=== PATIENT | male | born 1960 | race Caucasian/White ===

== ENCOUNTER 2017-05-23 14:34 | Inpatient (IN) | payer OTHER ==
[2017-05-23] MEDS ORDERED: Diltiazem IV VIAL* 125 MG in D5W 100 ML BAG* 100 ML IV ONE (15:04)
[2017-05-23] MEDS ORDERED: Diltiazem IV* 5 MG/ML 5 ML VIAL (for loading dose/IV Push) (25 MG) IV SLOW PU ONE (15:04)
[2017-05-23 15:13] LABS: Hematocrit 40 % (42-52); Hemoglobin 13.5 g/dl (14.0-18.0); Mean Corpuscular HGB Conc 34 g/dl (31-36); Mean Corpuscular Hemoglobin 30 pg (27-31); Mean Corpuscular Volume 90 fL (80-94); Mean Platelet Volume 8 um3 (7.4-10.4); Red Blood Count 4.46 10^6/ul (4.0-5.4); Red Cell Distribution Width 13 % (10.5-15); White Blood Count 8.7 10^3/ul (3.5-10.8)
[2017-05-23] MEDS ORDERED: Diltiazem IV* 5 MG/ML 5 ML VIAL (for loading dose/IV Push) (25 MG) ONE (15:18)
[2017-05-23 15:29] LABS: ALT 12 U/L (7-52); Albumin 4.3 g/dL (3.2-5.2); Alkaline Phosphatase 41 U/L (34-104); BUN/Creatinine Ratio 15.1 (8-20); Blood Urea Nitrogen 13 mg/dL (6-24); CO2 Carbon Dioxide 27 mmol/L (22-32); Calcium 9.8 mg/dL (8.6-10.3); Chloride 104 mmol/L (101-111); Creatine Kinase 207 U/L (10-223); EGFR African American 117.9 (>60); EGFR Non-African American 91.7 (>60); Globulin 3.2 g/dL (2-4); Glucose 87 mg/dL (70-100); LDL Cholesterol Direct 98 mg/dL; Sodium 137 mmol/L (133-145); Total Protein 7.5 g/dL (6.4-8.9)
--- NOTE | 2017-05-23 15:29 | RAD ---
Indication: Chest pain for one year. Comparison: No relevant prior exams available on the [facility] for comparison. Technique: Upright AP 1513 hours Report: Mild prominence of the interstitial markings with subtle thickened peripheral intralobular septa. Negative for pleural effusions. Negative for pneumothorax. Negative for cardiomegaly. Unremarkable central pulmonary vasculature and mediastinal contours. IMPRESSION: The pattern of prominence of interstitial markings favors mild interstitial edema. Correlate with clinical assessment.
[2017-05-23] MEDS ORDERED: Heparin DRIP 25,000 UNITS(*) 25,000 UNITS/500 ML BAG IVPB SCH (15:30)
[2017-05-23 15:54] LABS: Anion Gap 6 mmol/L (2-11)
[2017-05-23] MEDS ORDERED: Heparin VIAL(*) 5000 UNITS/ML VIAL (FIVE THOUSAND) IV SCH (16:00)
[2017-05-23] MEDS ORDERED: Metoprolol Tartrate TAB* 25 MG PO ONE (16:29)
[2017-05-23] MEDS ORDERED: Enoxaparin(*) 80 MG/0.8 ML SYR SUBCUT ONE (16:30)
[2017-05-23] MEDS ORDERED: Nicotine GUM* 2 MG PO PRN (16:45)
[2017-05-23] MEDS: Metoprolol Tartrate TAB* 25 MG PO SCH ×2 (18:12→22:48)
--- NOTE | 2017-05-23 18:15 | CONS ---
ADDENDUM NOW INCLUDED ON THIS REPORT CC: Hospitalist Service, Dr. Mckeon; Dr. Barreto; Dr. Delarosa * CARDIOLOGY CONSULT REPORT: DATE OF CONSULT: 05/23/17 HISTORY OF PRESENT ILLNESS: I was asked to see this 56-year-old male patient, who presented to the emergency room and was found to be in atrial flutter. Initially there was some concern of ST elevations inferiorly and the patient was also seen by Dr. Ortiz. The patient originally was seen by me in the office on 05/11/17. At that time, he was found to be in rapid atrial flutter. I advised him to go to the emergency room for further management. He said he will go, but apparently he did not go. He does have history of tobacco consumption for a long period of time and history of marijuana use. No alcoholism. He said he felt lightheaded, near syncope, about to pass out while he was driving his car. He had some episode of chest pain initially and palpitations and skipping and tachycardia, which they are not new. When I saw him back on 05/11/17, he had the same symptoms. He had a Holter monitor recently that showed him to be in atrial flutter with a rapid ventricular response. He does have no fever, no chills, no nausea, no vomiting, no hematochezia, no history of myocardial infarction, no orthopnea, no PND, no dizziness at the present time. No chest pain at the present time. No swelling in the lower extremities. An echocardiogram at bedside in the emergency room documented the patient to have global left ventricular systolic function reduced about 20% to 25%, bubble study was negative for any shunting. No significant valvular disease and no significant pericardial effusion. He is chest pain free. He did receive Cardizem bolus and then Cardizem IV, which has slowed his heart rate. He remains in atrial flutter. PAST MEDICAL HISTORY: Includes history of back pain, palpitations, osteoarthritis, and atrial flutter. PAST SURGICAL HISTORY: Includes several surgeries on left knee, removal of screws and jia, total knee replacement in 2009. MEDICATIONS: As an outpatient, he was supposed to be on metoprolol 25 mg twice a day, he discontinued that. ALLERGIES: Allergic to MORPHINE. FAMILY HISTORY: No family history of premature coronary artery disease. SOCIAL HISTORY: He lives alone. He is disabled. He smokes daily. No alcoholism. He does use marijuana. REVIEW OF SYSTEMS: His review of all other systems essentially is negative. PHYSICAL EXAM: He is awake, alert, and oriented. He is not in acute distress. Vital Signs: Blood pressure 120/70, pulse now after Cardizem slowed down to heart rate of 90, atrial flutter. He is afebrile. Head and Neck Exam: Normocephalic, atraumatic head. Ears, Nose, and Throat: Essentially benign. Neck: Supple. JVP is not elevated. No carotid bruits. No masses in the neck are appreciated. Chest: Clear to auscultation bilaterally. No rales, no wheezes, no added sounds appreciated. Heart: Normal S1, S2. No added sounds, no gallops, no rubs, no significant murmurs. Abdomen: Benign, soft, positive bowel sounds. Extremities: No edema, no cyanosis, no clubbing. Skin Exam: Normal. Psych: Normal affect and mood. 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 DIAGNOSTIC STUDIES/LAB DATA: His EKG today done at 2:44 showed him to be in rapid atrial flutter, and nonspecific T abnormality. White blood cells 8.7, hemoglobin 13.5, hematocrit 40. His chemistry: Sodium 137, chloride 104, BUN 13. LFTs normal. Troponin 0. Myoglobin 48. CK-MB 4.1 , total CK 207. BNP was only 68. LDL is 98. His chest x-ray showed mild interstitial edema. IMPRESSION: The patient is a 56-year-old with: 1. Presentation with rapid atrial flutter of unknown duration probably for a good period of time he had been rapid. When I saw him in the office on 05/11/17 , he was in rapid atrial flutter. 2. His echocardiogram showed severe global cardiomyopathy with ejection fraction of 20% to 25% of unknown duration, probably tachycardia induced. 3. Current tobacco consumption. 4. Marijuana abuse. 5. Abnormal EKG as described. PLAN: The patient will be admitted to telemetry on intensive care unit for rate control for his atrial flutter. I agree with anticoagulation, serial troponins. He is chest pain free at the moment. Echocardiogram will be finalized formally. Cardiomyopathy medications with beta fritz, low-dose FREDA inhibitors, Lasix p.r.n. Definitely given his severely reduced left ventricular systolic function, I advised discontinuing Cardizem. Definitely plans for quitting smoking and marijuana use. Eventually a cardiac catheterization to evaluate his coronary anatomy in light of his severely reduced left ventricular systolic function will be considered sometime in the future after he is stabilized and his heart rate is well controlled. Any further recommendations will be pending his clinical outcome. I have also discussed this patient with Dr. Ortiz. I will be discussing this patient further with Dr. Mckeon from the hospitalist service. ZADDENDUM: I have discussed this patient further with Dr. Mckeon from the hospitalist service. TIME SPENT: More than half of at least 60 to 65 plus minutes was in the face-to - face education and counseling mode managing this patient and further recommendations. [id number]/CPS #: [id number]- [id number]/CPS #: [id number] BERTIN
[2017-05-23 19:16] LABS: TSH (Thyroid Stimulating Horm) 6.36 mcIU/mL (0.34-5.60)
--- NOTE | 2017-05-23 20:27 | HP ---
CC: Dr. Conklin; Dr. Delarosa; DAMIAN Ruby * HISTORY AND PHYSICAL: DATE OF ADMISSION: 05/23/17 PRIMARY CARE PROVIDER: DAMIAN Ruby CHIEF COMPLAINT: Palpitations and shortness of breath. HISTORY OF PRESENT ILLNESS: Oli Wesley is a 56-year-old male with history of traumatic left knee injury in 1980 that required multiple revisions due to which he is on disability now. The patient stated that he was diagnosed with SVT in the past. He stated that he had been having off and on episodes of palpitations for several years. In the past several months, they had been getting more frequent. He went to see Dakota Díaz for evaluation and was ordered a Holter. The Holter disclosed that the patient had episodes of atrial flutter with high heart rate. At that point, the patient was directed to see Dr. Delarosa in the outpatient office. Dr. Delarosa saw the patient on 05/11/17 and noted that the patient has atrial fibrillation with rapid ventricular response and called an ambulance to take the patient into the ER. At that point , the patient refused to be transferred to the ER, had his friend pick him up and drive him around [place] until his symptoms "went away." The patient stated that ever since his evaluation by Dr. Delarosa, he had been having off and on palpitations. He stated that the medications that "they gave him for his heart," which was metoprolol made his heart palpitations worse and he stopped taking it. 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 He stated that he felt his heart was pounding very fast and he was short of breath. At this point, he decided to stop his truck and get out of it, smoked a cigarette to calm himself down. When that did not resolve his palpitations, he called Dakota Díaz's office for further advice. At that point, he was recommended to be brought into the emergency department for further evaluation. He had his friend pick him up from where he parked his car and drive him to the emergency department. Here, he had atrial flutter with a heart rate of 143. Due to his ST changes, he was initially noted to be a STEMI alert, but the patient never had chest pain. His heart rate slowed after a dose of Cardizem in the emergency department. He has once again no chest pain and his heart rate right now is in atrial flutter with a heart rate of 105 to 120. He is going to be placed on telemetry monitored bed into the hospital with a diagnosis of atrial flutter with rapid ventricular response. Please note that from verbal report from Dr. Delarosa, the patient's EF is close to 25 % at this point. PAST MEDICAL HISTORY: 1. History of accident in 1980 when the patient fell out of truck or trailer and had an extensive injury to his left leg and left knee. He required multiple revisions and operations for it. Currently, he is on disability due to that. 2. History of chronic back pain. 3. History of eye surgery on the right as a child after trauma involving a dog. 4. History of SVT in the past. 5. History of "open chest surgery" when he was 10 years old. Further details unknown. 6. History of multiple "fingers and toes fractures in the past." MEDICATIONS: None. ALLERGIES: MORPHINE. SOCIAL HISTORY: The patient smokes. He rolls his own cigarettes and he smokes as he told me equivalent of one-third of a pack a day and he has been doing so ever since he was 13. He denies any alcohol use. He smokes occasionally marijuana. 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 He does not have a steady job. He lives by himself and as his surrogate, he named his aunt who lives in the area. Aunt' s name is Leti Purvis and the phone number is [phone]. REVIEW OF SYSTEMS: Please see history of present illness. In addition to the above mentioned, the patient stated that in the past he would be having occasional chest pain with palpitations, but currently, he has not had any. All the remaining 14 systems were reviewed with the patient and were otherwise negative. PHYSICAL EXAMINATION GENERAL: The patient is a pleasant is a 56-year-old male of thin body habitus, who is in no acute distress. Alert, awake, and oriented x3. VITAL SIGNS: Blood pressure 106/72, heart rate of 104 and irregular, respiratory rate 16, oxygen saturation 97% on room air, temperature of 98.3. HEENT: Head: Atraumatic, normocephalic. Eyes: Pupils equal, round, and reactive to light and accommodation. Oropharynx clear. Mucosa moist. NECK: Supple. No JVD, no bruits bilaterally. RESPIRATORY: Clear to auscultation bilaterally. CARDIOVASCULAR: Irregularly irregular rhythm. No murmur. ABDOMEN: Soft, nontender. Bowel sounds present in all 4 quadrants. EXTREMITIES: There is no edema. Pulses +2 bilaterally. No clubbing or cyanosis. NEUROLOGIC: Speech clear. Cranial nerves II through XII grossly intact. Motor strength is 5/5 bilaterally. Flexion in the left knee is limited due to history of old disability and surgery. PSYCHIATRIC EVALUATION: Oriented x3, pleasant with no evidence of anxiety or depression. SKIN: On evaluation of the skin, no ecchymotic areas or rashes noted. DIAGNOSTIC STUDIES/LAB DATA: Laboratory data and studies performed during the hospital stay include: A portable chest x-ray, pattern of prominence of interstitial markings favor small interstitial edema. Correlate with clinical assessment. White blood cell count of 8.7, hemoglobin of 13.5, hematocrit of 40, and platelets of 260,000. Sodium 137, potassium 3.8, chloride 104, carbon dioxide 27, BUN 13, creatinine 0.86. Liver function tests were unremarkable. Troponin of 0. LDL of 98. The patient's repeat EKG shows atrial flutter with a heart rate of 74 beats per minute with no ST elevation. ASSESSMENT AND PLAN: 1. Atrial flutter with rapid ventricular response in a patient who has had problems with paroxysmal atrial flutter for quite sometime and now has most likely cardiomyopathy related to tachycardia, but ischemia needs to be also ruled out. At this point, the patient is going to be placed on telemetry monitored bed and admitted to the hospital. I have discussed the case with Dr. Delarosa. At this point, the recommendation is to abstain from calcium channel blockers due to the patient's cardiomyopathy and continue with metoprolol at 25 mg every 6 hours with hold parameters. We will also check the patient's TSH and magnesium level to make sure that those are within normal limits. Transthoracic echocardiogram is pending at the time of dictation. Dr. Delarosa will follow up with this patient in cardiology consult. For anticoagulation, the patient is going to be placed on Lovenox and we briefly discussed possibility of Coumadin versus one of the novel anticoagulants. The patient is concerned about the co-pays about the new anticoagulants and that is going to be addressed further on during his hospital stay. 2. In regards to the patient's history of smoking, the patient is going to be placed on nicotine gum as he requested and he was counseled about the need of stopping smoking today for approximately 4 minutes. 3. In regards to the DVT prophylaxis, the patient is already going to be anticoagulated with Lovenox as above mentioned for cardioembolic stroke prevention. 4. The patient's code status is full and his surrogate is his aunt as mentioned above. TIME SPENT: Approximately 65 minutes were spent on admission of this patient, more than half the time was spent [id number] with the patient during the interview and physical exam. [id number]/[facility] #: [id number] BERTIN
--- NOTE | 2017-05-23 21:09 | ED ---
Jamil Roberts Thomas, scribed for Kamaljit Kwon MD on 05/23/17 at 1509 . HPI Chest Pain - HPI Summary HPI Summary: The patient is a 56 y/o M who presents to the ED s/p a syncopal episode that occurred earlier today. The patient gives a poor history and does not answer questions directly. The patients PMD Dr. íDaz referred him to the ED after a checkup this AM. It is unclear whether or not the patient is experiencing CP in the ED due to his unwillingness to answer questions directly. Per triage documentation, the patient has been having intermittent CP for about a year. Per triage documentation, the patient saw Dr. Flores on 05/11/17 and was referred to the ED then. In the ED, the patient denies any complaints. However, he is diaphoretic. He maintains that he is previously healthy and does not take any medication except for ASA on some days. When asked if he took ASA earlier today, the patient is unsure whether or not he took it. He is a current smoker. - History of Current Complaint Chief Complaint: EDChestPainROMI Hx Obtained From: Patient Onset/Duration: Started Hours Ago - the patient had a syncopal episode earlier today, Still Present - CP may be present in the ED Associated Signs and Symptoms: Positive: Negative - the patient denies any complaints, Diaphoresis - Allergy/Home Medications Allergies/Adverse Reactions: Allergies Allergy/AdvReac Type Severity Reaction Status Date / Time Morphine Allergy Unknown Verified 09/16/15 07:39 Reaction Details Home Medications: Home Medications Metoprolol Tartrate TAB* [Lopressor TAB*] 25 mg PO BID 05/23/17 [History Confirmed 05/23/17] PMH/Surg Hx/FS Hx/Imm Hx Previously Healthy: No Cardiovascular History: Denies: Hx Myocardial Infarction Musculoskeletal History: Reports: Hx Arthritis - MANY JOINTS - Surgical History Surgery Procedure, Year, and Place: 1977 TRAUMA RT EYE. 1980 TRAUMA LEFT LEG, MANY SURGERIES OVER THE YEARS RT [facility]. 2009 TOTAL LEFT KNEE RT [facility] Hx Anesthesia Reactions: No Infectious Disease History: No Infectious Disease History: Denies: Traveled Outside the [place] in Last 30 Days - Family History Known Family History: Positive: Diabetes, Other - Cancer Negative: Blood Disorder - Social History Alcohol Use: None Substance Use Type: Reports: Marijuana Substance Use Comment - Amount & Last Used: HAS USED REGULARLY, NONE SINCE 2014, WILL NOT USE PREOP Smoking Status (MU): Light Every Day Tobacco Smoker Amount Used/How Often: 6-8 CIGS/DAY SINCE 02/2015 WAS VERY HEAVY SMOKER MANY YRS Length of Time of Smoking/Using Tobacco: 40 YRS Have You Smoked in the Last Year: Yes Review of Systems Negative: Fever Positive: Chest Pain - it is unclear whether or not the patient has CP Positive: Syncope - syncopal episode earlier today All Other Systems Reviewed And Are Negative: Yes Physical Exam Triage Information Reviewed: Yes Vital Signs On Initial Exam: Initial Vitals Temp Pulse Resp BP Pulse Ox 98.3 F 145 20 118/82 98 05/23/17 14:40 05/23/17 14:40 05/23/17 14:40 05/23/17 14:40 05/23/17 14:40 Vital Signs Reviewed: Yes Appearance: Positive: Well-Appearing, No Pain Distress Skin: Positive: Warm, Skin Color Reflects Adequate Perfusion, Dry Head/Face: Positive: Normal Head/Face Inspection Eyes: Positive: Normal ENT: Positive: Normal ENT inspection Neck: Positive: Supple, Nontender Respiratory/Lung Sounds: Positive: Clear to Auscultation, Breath Sounds Present Cardiovascular: Positive: Other - Regularly tachycardic. Abdomen Description: Positive: Nontender, Soft Bowel Sounds: Positive: Present Musculoskeletal: Positive: Normal Neurological: Positive: Normal Psychiatric: Positive: Normal, Affect/Mood Appropriate Diagnostics - Vital Signs Vital Signs Temp Pulse Resp BP Pulse Ox 05/23/17 14:40 98.3 F 145 20 118/82 98 - Laboratory Lab Results: Lab Results 05/23/17 05/23/17 05/23/17 Range/Units 15:00 15:00 15:00 WBC 8.7 (3.5-10.8) 10^3/ul RBC 4.46 (4.0-5.4) 10^6/ul Hgb 13.5 L (14.0-18.0) g/dl Hct 40 L (42-52) % MCV 90 (80-94) fL MCH 30 (27-31) pg MCHC 34 (31-36) g/dl RDW 13 (10.5-15) % Plt Count 260 (150-450) 10^3/ul MPV 8 (7.4-10.4) um3 INR (Anticoag Therapy) 1.04 (0.89-1.11) APTT 30.3 (26.0-36.3) seconds Sodium 137 (133-145) mmol/L Potassium TNP Chloride 104 (101-111) mmol/L Carbon Dioxide 27 (22-32) mmol/L Anion Gap 6 (2-11) mmol/L BUN 13 (6-24) mg/dL Creatinine 0.86 (0.67-1.17) mg/dL Est GFR ( Amer) 117.9 (>60) Est GFR (Non-Af Amer) 91.7 (>60) BUN/Creatinine Ratio 15.1 (8-20) Glucose 87 (70-100) mg/dL Calcium 9.8 (8.6-10.3) mg/dL Total Bilirubin 0.50 (0.2-1.0) mg/dL AST TNP ALT 12 (7-52) U/L Alkaline Phosphatase 41 (34-104) U/L Total Creatine Kinase 207 (10-223) U/L CK-MB (CK-2) 4.1 (0.6-6.3) ng/mL Myoglobin 48.9 (17.4-105.7) ng/mL Troponin I 0.00 (<0.04) ng/mL B-Natriuretic Peptide ( - 100) pg/mL Total Protein 7.5 (6.4-8.9) g/dL Albumin 4.3 (3.2-5.2) g/dL Globulin 3.2 (2-4) g/dL Albumin/Globulin Ratio 1.3 (1-3) LDL Cholesterol Direct 98 mg/dL TSH 6.36 H (0.34-5.60) mcIU/mL Blood Type Antibody Screen 05/23/17 05/23/17 05/23/17 Range/Units 15:00 15:00 15:59 WBC (3.5-10.8) 10^3/ul RBC (4.0-5.4) 10^6/ul Hgb (14.0-18.0) g/dl Hct (42-52) % MCV (80-94) fL MCH (27-31) pg MCHC (31-36) g/dl RDW (10.5-15) % Plt Count (150-450) 10^3/ul MPV (7.4-10.4) um3 INR (Anticoag Therapy) (0.89-1.11) APTT (26.0-36.3) seconds Sodium (133-145) mmol/L Potassium 3.8 Chloride (101-111) mmol/L Carbon Dioxide (22-32) mmol/L Anion Gap (2-11) mmol/L BUN (6-24) mg/dL Creatinine (0.67-1.17) mg/dL Est GFR ( Amer) (>60) Est GFR (Non-Af Amer) (>60) BUN/Creatinine Ratio (8-20) Glucose (70-100) mg/dL Calcium (8.6-10.3) mg/dL Total Bilirubin (0.2-1.0) mg/dL AST 16 ALT (7-52) U/L Alkaline Phosphatase (34-104) U/L Total Creatine Kinase (10-223) U/L CK-MB (CK-2) (0.6-6.3) ng/mL Myoglobin (17.4-105.7) ng/mL Troponin I (<0.04) ng/mL B-Natriuretic Peptide 68 ( - 100) pg/mL Total Protein (6.4-8.9) g/dL Albumin (3.2-5.2) g/dL Globulin (2-4) g/dL Albumin/Globulin Ratio (1-3) LDL Cholesterol Direct mg/dL TSH (0.34-5.60) mcIU/mL Blood Type A Positive Antibody Screen Negative Result Diagrams: 05/23/17 15:00 05/23/17 15:59 Lab Statement: Any lab studies that have been ordered have been reviewed, and results considered in the medical decision making process. - Radiology CXR Xray Interpretation: Positive (See Comments) - The pattern of prominence of interstitial markings favors mild interstitial edema. Correlate with clinical assessment. ED physician has reviewed this report and agrees. Radiology Interpretation Completed By: Radiologist - EKG 14:44 Cardiac Rate: Tachycardia - at [address] elevations. Inferior STEMI. No reciprocal STEMI. EKG Rhythm: Atrial Flutter Chest Pain Course/Dx - Course Course Of Treatment: Mr. Wesley's initial ecg showed ST elevations in the inferior leads without reciprocal changes. His rate was 140 from sinus tachy or A-Flutter at a 2:1 block. Based on his ecg, a STEMI was called and the decision was to slow his A-Flutter first and see if he continued with ST elevations. He was started on cardizem and his ST elevations resolved with normalization of his rate. - Diagnoses Provider Diagnoses: Atrial flutter with rapid ventricular response - Provider Notifications Discussed Care Of Patient With: Uriel Ortiz Time Discussed With Above Provider: 15:00 Instructed by Provider To: Other - I consulted with Dr. Ortiz, cardiology, regarding patient care. I also consulted with Dr. Flores, cardiology, regarding patient care. I also consulted at 15:[address] Mckeon, hospitalist, who admits the patient to [facility]. - Critical Care Time Critical Care Time: 30-74 min Discharge - Discharge Plan Condition: Fair Disposition: ADMITTED TO [facility] The documentation as recorded by the Jamil forde Thomas accurately reflects the service I personally performed and the decisions made by me, Kamaljit Kwon MD.
--- NOTE | 2017-05-23 21:25 | CONS ---
CONSULTATION REPORT: ADDENDUM: I have discussed this patient further with Dr. Mckeon from the hospitalist service. TIME SPENT: More than half of at least 60 to 65 plus minutes was in the face-to - face education and counseling mode managing this patient and further recommendations. [id number]/[facility] #: [id number] MTDD
[2017-05-24] MEDS ORDERED: Digoxin IV* 0.5 MG/2 ML AMP (0.25 MG/ML) IV SLOW PU ONE (00:54)
[2017-05-24] MEDS: Metoprolol Tartrate TAB* 25 MG PO SCH ×3 (05:23→17:18)
[2017-05-24] MEDS: Enoxaparin(*) 80 MG/0.8 ML SYR SUBCUT SCH ×2 (05:24→17:18)
[2017-05-24 07:07] LABS: Calcium 8.9 mg/dL (8.6-10.3); EGFR African American 116.3 (>60); EGFR Non-African American 90.4 (>60); Potassium 4.4 mmol/L (3.5-5.0); Troponin I 0.01 ng/mL (<0.04)
[2017-05-24 08:58] LABS: Free T3 3.3 pg/mL (2.5-3.9)
[2017-05-24 08:59] LABS: Free T4 0.84 ng/dL (0.61-1.12)
[2017-05-24] MEDS ORDERED: Digoxin IV* 0.5 MG/2 ML AMP (0.25 MG/ML) IV ONE (09:00)
[2017-05-24] MEDS ORDERED: Influenza VAC *QUAD* 2017-18* 0.5 ML SYRINGE IM ONE (09:00)
--- NOTE | 2017-05-24 09:42 | PN ---
Subjective Date of Service: 05/24/17 Interval History: pt's HR had been in 140's all morning, he is asymptomatic Objective Active Medications: Enoxaparin Sodium (Lovenox(*)) 70 mg SUBCUT Q12H [facility] Last Admin: 05/24/17 05:24 Dose: 70 mg Metoprolol Tartrate (Lopressor Tab*) 25 mg PO Q6H [facility] Last Admin: 05/24/17 05:23 Dose: 25 mg Nicotine Polacrilex (Nicotine Gum*) 2 mg PO Q2H PRN PRN Reason: CRAVING Vital Signs 05/23/17 05/23/17 05/23/17 16:05 16:10 16:15 Temperature Pulse Rate 74 84 101 Respiratory 14 19 15 Rate Blood Pressure 106/67 128/75 116/67 (mmHg) O2 Sat by Pulse 97 98 97 Oximetry 05/23/17 05/23/17 05/23/17 16:20 16:25 16:30 Temperature Pulse Rate 97 95 93 Respiratory 16 17 16 Rate Blood Pressure 130/74 87/35 106/72 (mmHg) O2 Sat by Pulse 97 97 97 Oximetry 05/23/17 05/23/17 05/23/17 16:49 17:13 19:25 Temperature 98.0 F 98.3 F Pulse Rate 74 71 59 Respiratory 15 16 20 Rate Blood Pressure 104/71 107/74 99/58 (mmHg) O2 Sat by Pulse 96 100 99 Oximetry 05/23/17 05/23/17 05/24/17 19:31 20:00 00:08 Temperature 98.3 F 98.1 F Pulse Rate 66 140 Respiratory 20 20 20 Rate Blood Pressure 78/52 93/68 (mmHg) O2 Sat by Pulse 99 98 Oximetry 05/24/17 05/24/17 05/24/17 02:10 03:27 07:13 Temperature 97.7 F Pulse Rate 140 140 139 Respiratory 16 16 Rate Blood Pressure 95/81 93/73 (mmHg) O2 Sat by Pulse 100 99 Oximetry 05/24/17 05/24/17 08:00 09:12 Temperature Pulse Rate 144 Respiratory 16 Rate Blood Pressure (mmHg) O2 Sat by Pulse Oximetry Oxygen Devices in Use Now: None Appearance: 56 yo M in nAD, aAOx3 Eyes: No Scleral Icterus, PERRLA Ears/Nose/Mouth/Throat: NL Teeth, Lips, Gums, Mucous Membranes Moist Neck: NL Appearance and Movements; NL JVP, Trachea Midline Respiratory: Symmetrical Chest Expansion and Respiratory Effort, Clear to Auscultation Cardiovascular: NL Sounds; No Murmurs; No JVD, - - irregular, tachy Abdominal: NL Sounds; No Tenderness; No Distention, No Hepatosplenomegaly Lymphatic: No Cervical Adenopathy Extremities: No Edema, No Clubbing, Cyanosis Skin: No Rash or Ulcers, No Nodules or Sclerosis Neurological: Alert and Oriented x 3, NL Muscle Strength and Tone Result Diagrams: 05/23/17 15:00 05/24/17 06:25 Additional Lab and Data: Lab Results 05/23/17 05/23/17 05/23/17 Range/Units 15:00 15:00 15:00 WBC 8.7 (3.5-10.8) 10^3/ul RBC 4.46 (4.0-5.4) 10^6/ul Hgb 13.5 L (14.0-18.0) g/dl Hct 40 L (42-52) % MCV 90 (80-94) fL MCH 30 (27-31) pg MCHC 34 (31-36) g/dl RDW 13 (10.5-15) % Plt Count 260 (150-450) 10^3/ul MPV 8 (7.4-10.4) um3 INR (Anticoag Therapy) 1.04 (0.89-1.11) APTT 30.3 (26.0-36.3) seconds Sodium 137 (133-145) mmol/L Potassium TNP Chloride 104 (101-111) mmol/L Carbon Dioxide 27 (22-32) mmol/L Anion Gap 6 (2-11) mmol/L BUN 13 (6-24) mg/dL Creatinine 0.86 (0.67-1.17) mg/dL Est GFR ( Amer) 117.9 (>60) Est GFR (Non-Af Amer) 91.7 (>60) BUN/Creatinine Ratio 15.1 (8-20) Glucose 87 (70-100) mg/dL Calcium 9.8 (8.6-10.3) mg/dL Total Bilirubin 0.50 (0.2-1.0) mg/dL AST TNP ALT 12 (7-52) U/L Alkaline Phosphatase 41 (34-104) U/L Total Creatine Kinase 207 (10-223) U/L CK-MB (CK-2) 4.1 (0.6-6.3) ng/mL Myoglobin 48.9 (17.4-105.7) ng/mL Troponin I 0.00 (<0.04) ng/mL B-Natriuretic Peptide ( - 100) pg/mL Total Protein 7.5 (6.4-8.9) g/dL Albumin 4.3 (3.2-5.2) g/dL Globulin 3.2 (2-4) g/dL Albumin/Globulin Ratio 1.3 (1-3) LDL Cholesterol Direct 98 mg/dL TSH 6.36 H (0.34-5.60) mcIU/mL Blood Type Antibody Screen 05/23/17 05/23/17 05/23/17 Range/Units 15:00 15:00 15:59 WBC (3.5-10.8) 10^3/ul RBC (4.0-5.4) 10^6/ul Hgb (14.0-18.0) g/dl Hct (42-52) % MCV (80-94) fL MCH (27-31) pg MCHC (31-36) g/dl RDW (10.5-15) % Plt Count (150-450) 10^3/ul MPV (7.4-10.4) um3 INR (Anticoag Therapy) (0.89-1.11) APTT (26.0-36.3) seconds Sodium (133-145) mmol/L Potassium 3.8 Chloride (101-111) mmol/L Carbon Dioxide (22-32) mmol/L Anion Gap (2-11) mmol/L BUN (6-24) mg/dL Creatinine (0.67-1.17) mg/dL Est GFR ( Amer) (>60) Est GFR (Non-Af Amer) (>60) BUN/Creatinine Ratio (8-20) Glucose (70-100) mg/dL Calcium (8.6-10.3) mg/dL Total Bilirubin (0.2-1.0) mg/dL AST 16 ALT (7-52) U/L Alkaline Phosphatase (34-104) U/L Total Creatine Kinase (10-223) U/L CK-MB (CK-2) (0.6-6.3) ng/mL Myoglobin (17.4-105.7) ng/mL Troponin I (<0.04) ng/mL B-Natriuretic Peptide 68 ( - 100) pg/mL Total Protein (6.4-8.9) g/dL Albumin (3.2-5.2) g/dL Globulin (2-4) g/dL Albumin/Globulin Ratio (1-3) LDL Cholesterol Direct mg/dL TSH (0.34-5.60) mcIU/mL Blood Type A Positive Antibody Screen Negative Assess/Plan/Problems-Billing Assessment: 56 yo M with h/o Paroxysmal a. flutter now with persistent a. flutter. - Patient Problems (1) Atrial flutter Comment: still persisist and uncontrolled. Digoxin IV given as per Dr. Tejeda Pt to be continued on lopressor Q6H, unable to titarte further due to SBP's low. Will d/c with cardiology re:possible cardioversion discussed anticoagulation with pt and due to possible cost related with NOAC's he chose Coumadin. will start it today. Nutrition consult ordered Lytes WNL, TSH slightly elevated, but FT4, FT3 WNL (2) Cardiomyopathy Comment: EF 20-25%, suspect tachycardia related (3) Tobacco abuse Comment: counseled at admission cont nicotine gum (4) DVT prophylaxis Comment: Lovenox Status and Disposition: inpatient
[2017-05-24] MEDS ORDERED: Warfarin TAB(*) 5 MG PO SCH (17:00)
[2017-05-24] MEDS: Metoprolol Tartrate TAB* 50 mg PO SCH (22:05)
[2017-05-25 05:40] LABS: BUN/Creatinine Ratio 31.6 (8-20); Calcium 8.6 mg/dL (8.6-10.3); EGFR Non-African American 105.7 (>60); Potassium 4.2 mmol/L (3.5-5.0)
[2017-05-25] MEDS: Enoxaparin(*) 80 MG/0.8 ML SYR SUBCUT SCH (05:41)
[2017-05-25] MEDS ORDERED: Lisinopril TAB* 5 MG PO SCH (09:00)
[2017-05-25 09:15] VITALS: BP 102/43
[2017-05-25] MEDS: Metoprolol Tartrate TAB* 50 mg PO SCH (11:07)
--- NOTE | 2017-05-25 21:43 | DS ---
CC: Dakota SALGADO; Dr. Delarosa; Dr. Conklin * DISCHARGE SUMMARY: DATE OF ADMISSION: 05/23/17 DATE OF DISCHARGE: 05/25/17 PRIMARY CARE PROVIDER: DAMIAN Ruby. DISCHARGE DIAGNOSES: 1. Atrial flutter, uncontrolled. 2. Cardiomyopathy, likely related to tachycardia, but ischemia was not ruled out during this hospital stay. The patient was not interested in cardiac catheterization for the time being, but he wants to discuss it further at a later time. SECONDARY DIAGNOSES: 1. History of an accident in 1980 when he fell out of truck trailer and had an extensive injury to his left leg. Currently, he is on disability due to this injury. 2. History of chronic back pain. 3. History of eye surgery on the right as a child. 4. History of supraventricular tachycardia in the past. 5. History of "open chest surgery" when he was 10 years old, further details unknown. 6. History of multiple fractures of his "fingers and toes." MEDICATIONS AT DISCHARGE: Include: 1. Coumadin 5 mg daily. 2. Nicotine gum 2 mg every 2 hours p.r.n. 3. Metoprolol tartrate 50 mg b.i.d. 4. Lisinopril 2.5 mg daily. 5. Lovenox 70 mg subcutaneously every 12 hours until the patient's INR is therapeutic. 6. Digoxin 0.125 mg daily. Dakota Díaz's office was notified and we will follow the patient's INRs and direct the patient's Lovenox stopping. The patient's next INR is scheduled on Sunday05/28/17. FOLLOWUP: The patient is recommended to follow up with Dakota Díaz in 4 to [address] Delarosa in 1 to 2 weeks. DIAGNOSTIC STUDIES/LAB DATA: At the time of discharge showed sodium of 134, potassium 4.2, chloride 104, carbon dioxide 25, BUN 24, creatinine 0.76. The patient's TSH at admission was slightly elevated at 6.36, but the patient's free T4 and free T3 were within normal limits at 0.824 and 3.3 respectively. The patient's troponins were negative throughout the hospital stay at 0 to 0.01. Brain natriuretic peptide was 68 on 05/23/17. Digoxin level checked on 10/13/17 was 1.0 and that was after IV digoxin loaded the day before. Transthoracic echocardiogram obtained on 05/24/17 showed the left ventricular chamber size is normal, global hypokinesis of the left ventricle with minor regional variation with severely decreased left ventricular systolic function and EF of 20% to 25%. Right ventricle was mildly dilated and right atrium was mildly dilated. Bubble study was negative and patent foramen ovale was not noted. There was a trace mitral regurgitation, trace tricuspid regurgitation and evidence of mild pulmonary hypertension. Portable chest x-ray at admission, the pattern of prominent interstitial marking favors mild interstitial edema. Correlate with clinical assessment. CONSULTATION DURING THE HOSPITAL STAY: Dr. Delarosa from Cardiology. HOSPITALIZATION COURSE: Oli Wesley is a 56-year-old male with history of intermittent palpitations for several years, who presented to [facility] after he noted fast heart rate. At that point, he was also felt short of breath and has some chest pressure. He came into the emergency department with atrial flutter with rapid ventricular response and heart rate in the 140s. Please also note that approximately 2 weeks prior to that he went to Dr. Delarosa's office to be evaluated, who was noted to be also an A-flutter. He was recommended to be taken by an ambulance to the emergency department and he refused. During the patient's current hospital stay, the patient was placed on Lopressor and loaded with digoxin. Within a little bit over 24 hours he converted to sinus rhythm. It was noted that his EF is 25% when he was in A-flutter likely due to tachycardia related cardiomyopathy. Nevertheless, Dr. Delarosa recommended for the patient to undergo cardiac catheterization which for during his hospital stay the patient refused, but he wants to talk about it later on. By the time of discharge, the patient is in sinus rhythm and ready to go home. He was placed on oral dose of FREDA inhibitor for his cardiomyopathy. His metoprolol is going to be continued twice a day and he is going to also be continued on digoxin. We discussed anticoagulation with the patient and he was interested more in Lovenox and Coumadin, so he used Lovenox in the past after his orthopedic surgeries. She was bridged with Lovenox and Coumadin, was started on 05/24/17. The patient's INR was within normal limits during his hospital stay and he is recommended to have a next INR on 05/28/17. The patient is going to be discharged home. Recommendation to follow up as above mentioned. PHYSICAL EXAM AT THE TIME OF DISCHARGE: Blood pressure 102/43, heart rate of 63 and regular, respiratory rate 16, oxygen saturation 100% on room air, temperature 98.0. General: The patient is a very pleasant 56-year-old male who is in no acute distress. Alert, awake, and oriented x3. HEENT: Head: Atraumatic, normocephalic. Eyes: Pupils equal and reactive to light and accommodation. Oropharynx clear. Mucosa moist. Neck: Supple. No JVD. No bruits bilaterally. Cardiovascular: Regular rate and rhythm. No murmurs. Respiratory: Clear to auscultation bilaterally. Abdomen: Soft, nontender. Bowel sounds are present in all 4 quadrants. Extremities: There is no edema. Pulses are +2 bilaterally. No clubbing or cyanosis. On evaluation of the skin, no ecchymotic areas or rashes noted. Please note that this is a short summary of the patient's hospital stay. Please refer to further medical records for details. TIME SPENT: Approximately 35 minutes were spent on the patient's discharge. [id number]/[facility] #: [id number] BERTIN
== END 2017-05-25 11:12 | disposition home or self-care (01) | DRG 201 ==
LOC: ED 14:34 → MEDTELE 16:01
PROVIDERS: ADMIT Internal Medicine; ATTEND Internal Medicine
DX: I48.92 Unspecified atrial flutter (principal); I42.9 Cardiomyopathy, unspecified; M54.9 Dorsalgia, unspecified; F17.210 Nicotine dependence, cigarettes, uncomplicated; M19.90 Unspecified osteoarthritis, unspecified site; F12.10 Cannabis abuse, uncomplicated; Z88.5 Allergy status to narcotic agent
CPT/HCPCS: 36415; 71010; 80048; 80053; 80162; 82550; 82553; 83721; 83874; 83880; 84439; 84443; 84481; 84484; 85027; 85610; 85730; 86850; 86900; 86901; 90686; 93005; 93306; A9270-GY; J1160; J1644; J1650